=== PATIENT | female | born 1960 | race African-American/Black ===

== ENCOUNTER 2021-11-07 16:57 | Emergency (ER) | payer MEDICARE, OTHER ==
[~2021-11-07] VITALS: Ht 170.2 cm; Wt 81.8 kg
[~2021-11-07 16:57] MED LIST: ALPR2TAB2 PO; AMLO-257 PO; CARI350T PO; CLON-595 PO; DIVA-80 PO; DOXY100C5 PO; FLUT1DIS3 IH; NICO21T TD; OMEP20 PO; OXYC80TA40 PO; PHEN300C2 PO; PREM625 PO; [UNRECOGNIZED DRUG - CODE] TD
[2021-11-07 17:26] VITALS: BP 150/94
[2021-11-07] MEDS ORDERED: MORPHINE SULFATE 2 MG/ML SYRINGE IVP ONE (17:45)
[2021-11-07] MEDS ORDERED: ONDANSETRON HCL 4 MG/2 ML VIAL IVP ONE (17:45)
[2021-11-07] MEDS ORDERED: SODIUM CHLORIDE 0.9% 1,000 ML IV ONE (17:45)
[2021-11-07] MEDS ORDERED: ATOR10TA84 PO (17:50)
[2021-11-07] MEDS ORDERED: TIZA-211 PO (17:50)
[2021-11-07 18:13] LABS: BASOPHILS % (AUTO) 0.6 % (0.0-2.0); EOSINOPHILS % (AUTO) 0.6 % (1.0-6.0); HEMATOCRIT 40.6 % (36-46); HEMOGLOBIN 13.4 g/dL (12.0-16.0); LYMPHOCYTES # (AUTO) 2.5 K/uL (1.0-4.8); LYMPHOCYTES % (AUTO) 31.4 % (22.0-44.0); MEAN CORPUSCULAR HEMOGLOBIN 29.3 pg (26.0-34.0); MEAN CORPUSCULAR HGB CONC 33.1 G/dL (31.0-37.0); MEAN CORPUSCULAR VOLUME 88 fL (80-100); MONOCYTES # (AUTO) 0.5 K/uL (0.1-1.0); MONOCYTES % (AUTO) 6.8 % (2.0-9.0); NEUTROPHILS # (AUTO) 4.8 K/uL (1.8-7.7); NEUTROPHILS % (AUTO) 60.6 % (40.0-70.0); PLATELET COUNT (AUTO) 255 K/uL (150-450); RED CELL DISTRIBUTION WIDTH 14.6 % (11.5-14.5)
[2021-11-07 18:31] LABS: ANION GAP 5 mmol/L (8-16); CARBON DIOXIDE 27 mmol/L (22-29); CHLORIDE 104 mmol/L (98-107); CREATININE 0.67 mg/dL (0.60-1.30); GLUCOSE,RANDOM 74 mg/dL (70-110); POTASSIUM 3.9 mmol/L (3.5-5.1); SODIUM SERUM 136 mmol/L (136-145); UREA NITROGEN, BLOOD 11 mg/dL (7-18)
[2021-11-07 18:32] LABS: GLOMERULAR FILTR. RATE CALC > 60 mL/min (>60)
[2021-11-07 18:37] LABS: ALANINE AMINOTRANSFERASE 16 U/L (12-78); ALBUMIN 3.4 g/dL (3.4-5.0); ALKALINE PHOSPHATASE 124 U/L (46-116); ASPARTATE AMINOTRANSFERASE 11 U/L (15-37); BILIRUBIN,TOTAL 0.3 mg/dL (0.1-1.0); LIPASE 68 U/L (73-393); TOTAL PROTEIN, SERUM 7.3 g/dL (6.4-8.2)
[2021-11-07] MEDS ORDERED: DOCU-385 PO (18:49)
== END 2021-11-07 21:50 | disposition home or self-care (01) ==
LOC: EMS 17:54
DX: K59.00 Constipation, unspecified (principal); R10.13 Epigastric pain; E11.9 Type 2 diabetes mellitus without complications; F17.210 Nicotine dependence, cigarettes, uncomplicated; J44.9 Chronic obstructive pulmonary disease, unspecified; I10 Essential (primary) hypertension; T38.3X5A Adverse effect of insulin and oral hypoglycemic [antidiabetic] drugs, initial encounter; Y92.89 Other specified places as the place of occurrence of the external cause; Z88.0 Allergy status to penicillin
CPT/HCPCS: 99285; 74176; 96374; 71045; 96361; 96375; 80053; 83690; 84484; 85025; 36415; 93005; J2270; J2405; J7030